=== PATIENT | male | born 1975 | race Caucasian/White ===

== ENCOUNTER 2016-03-08 11:45 | Day surgery (SDC) | payer BC ==
[~2016-03-08] VITALS: Ht 180.3 cm; Wt 77.0 kg
[~2016-03-08 11:45] MED LIST: AUGMENTIN875 MG PO; BACTROBAN CREAM15 GM TP; DOCUSATE SODIU100 MG PO; LANTUS 10100 UNITS/ SC; MOTRIN800 MG PO; NEURONTIN300 MG PO; NEURONTIN600 MG PO; NOVOLOG PE100 UNITS/ SC; PANTOPRAZOLE SO40 MG PO; PHILLIPS' COLO1 EACH PO; TRAMADOL HCL50 MG PO; TYLENOL EXTRA500 MG PO; ZOLOFT25 MG PO
[2016-03-08 12:10] VITALS: BP 123/80
[2016-03-08 12:50] LABS: POINT-OF-CARE METER ID UU14174212
[2016-03-08 14:16] LABS: POINT-OF-CARE METER ID UU14174212
[2016-03-08 15:11] LABS: POINT-OF-CARE METER ID UU13113675
[2016-03-08 16:29] VITALS: BP 123/72
[2016-03-08 17:06] VITALS: BP 122/79
[2016-03-09 11:43] LABS: POINT-OF-CARE METER ID UU14174212
[2016-03-09 11:44] LABS: POINT-OF-CARE METER ID UU14174212
== END 2016-03-08 17:22 | disposition home or self-care (01) ==
LOC: SDC 11:45
PROVIDERS: Podiatrist Foot & Ankle Surgery
PROC: 0QBN0ZZ Excision of Right Metatarsal, Open Approach (ICD-10-PCS; principal; 2016-03-08)
DX: Q66.89 Other specified congenital deformities of feet (principal); E11.622 Type 2 diabetes mellitus with other skin ulcer; L97.512 Non-pressure chronic ulcer of other part of right foot with fat layer exposed; Z79.4 Long term (current) use of insulin; K21.9 Gastro-esophageal reflux disease without esophagitis; F17.200 Nicotine dependence, unspecified, uncomplicated
CPT/HCPCS: 73630; 82948; 87070; 87075; 87205; 88304; 88311; J0690; J1815; J1885; J2250; J2405; J3010; S0020

== ENCOUNTER 2016-04-02 10:16 | Emergency (ER) | payer BC ==
[~2016-04-02] VITALS: Ht 180.3 cm; Wt 75.0 kg
[2016-04-02 10:47] LABS: POINT-OF-CARE METER ID UU13113778
[2016-04-02 11:43] LABS: CHLORIDE 102 mEq/L (99-109); POTASSIUM 3.5 mEq/L (3.7-5.4); SODIUM 144 mEq/L (136-147)
[2016-04-02 11:45] LABS: GLUCOSE 253 mg/dL (70-99)
[2016-04-02 11:46] LABS: ANION GAP 17 MEQ/L (2-14)
[2016-04-02 11:48] LABS: SERUM ETHYL ALCOHOL 358 mg/dL
[2016-04-02 11:49] LABS: GFR ESTIMATE (CALCULATED) > 59 mL/min/
[2016-04-02 11:50] LABS: UREA NITROGEN (BUN) 13 mg/dL (9-23)
[2016-04-02 11:56] LABS: EOSINOPHIL (%) 2.1 % (0-5); EOSINOPHIL COUNT 0.2 K/uL (0-0.3); HEMATOCRIT 45.8 % (38.0-50.0); IMMATURE GRANULOCYTE (%) 0.3 % (0.0-0.7); LYMPHOCYTE COUNT 2.7 K/uL (1.0-2.8); MCH 31.5 PG (29.0-34.0); MCHC 35.8 G/DL (30.0-36.0); MCV 88.1 FL (86-99); MEAN PLAT.VOLUME 10.2 uM^3 (9.0-12.4); MONOCYTE (%) 3.1 % (3-12); MONOCYTE COUNT 0.3 K/uL (0-0.8); NEUTROPHIL (%) 66.5 % (45-76); NEUTROPHIL COUNT 6.4 K/uL (1.8-6.4); PLATELET COUNT 194 K/uL (156-360); RBC DIS.WIDTH-CV 12.5 % (11.8-14.6); RBC DIS.WIDTH-SD 40.2 % (39-53); WHITE BLOOD COUNT 9.6 K/uL (4.1-10.2)
[2016-04-02 15:25] LABS: ADD MIUA? NO; BILIRUBIN NEGATIVE; BLOOD NEGATIVE; COLOR YELLOW ((YELLOW)); GLUCOSE (STRIP) 150; KETONES 20; LEUKOCYTES NEGATIVE; NITRITE NEGATIVE; PROTEIN (STRIP) 30; SPECIFIC GRAVITY 1.011 (1.000-1.030); UROBILINOGEN 0.2 MG/DL (0.2-1.0)
[2016-04-02 15:32] LABS: AMPHETAMINE NEGATIVE (500 ng/mL); BARBITURATES NEGATIVE (200 ng/mL); BENZODIAZEPINES NEGATIVE (150 ng/mL); COCAINE NEGATIVE (150 ng/mL); INTERNAL CONTROLS VALID? YES; METHADONE NEGATIVE (200 ng/mL); METHAMPHETAMINE NEGATIVE (500 ng/mL); OPIATES (MORPHINE) NEGATIVE (100 ng/mL); OXYCODONE NEGATIVE (100 ng/mL); PHENCYCLIDINE NEGATIVE (25 ng/mL); PROPOXYPHENE NEGATIVE (300 ng/mL); THC CANNABINOIDS NEGATIVE (50 ng/mL); TRICYCLIC ANTIDEPRESSANTS NEGATIVE (300 ng/mL)
[2016-04-02 15:33] LABS: POINT-OF-CARE METER ID UU13113702
[2016-04-02] MEDS ORDERED: LIBRIUM25 MG PO (22:18)
[2016-04-02 22:20] LABS: POINT-OF-CARE METER ID UU13113702
[2016-04-02 22:52] VITALS: BP 138/93
== END 2016-04-02 22:53 | disposition home or self-care (01) ==
LOC: EME 10:16
PROVIDERS: Emergency Medicine
DX: F10.229 Alcohol dependence with intoxication, unspecified (principal); F33.1 Major depressive disorder, recurrent, moderate; R45.851 Suicidal ideations; E11.65 Type 2 diabetes mellitus with hyperglycemia; Z79.4 Long term (current) use of insulin; Z91.14 Patient's other noncompliance with medication regimen; F17.200 Nicotine dependence, unspecified, uncomplicated; Y90.8 Blood alcohol level of 240 mg/100 ml or more
CPT/HCPCS: 80048; 81003; 82948; 85025; 90839; 99281; 99285; G0480